=== PATIENT | male | born 1950 | race Caucasian/White ===

== ENCOUNTER 2021-08-12 20:02 | Emergency (ER) | payer MEDICARE, OTHER ==
[2021-08-12 22:27] LABS: HEMOGLOBIN 13.1 gm/dl (14.0-17.5); RED BLOOD COUNT 4.18 M/UL (4.20-5.50); WHITE BLOOD COUNT 15.9 K/UL (4.5-11.0)
[2021-08-12 23:01] LABS: BUN/CREATININE RATIO 29 (0-10)
== END 2021-08-13 04:47 | disposition home or self-care (01) ==
LOC: ER1 20:02
PROVIDERS: Family Medicine
DX: K80.50 Calculus of bile duct without cholangitis or cholecystitis without obstruction (principal); R79.89 Other specified abnormal findings of blood chemistry; I10 Essential (primary) hypertension; Z20.822 Contact with and (suspected) exposure to COVID-19; Z79.01 Long term (current) use of anticoagulants; Z88.0 Allergy status to penicillin; Z88.1 Allergy status to other antibiotic agents
CPT/HCPCS: 0240U; 71045; 80053; 80074; 82550; 82553; 83605; 83690; 83735; 84484; 85025; 85610; 87040; 93005; 96361; 96365; 96375; 99284; J1335; J2405; Q9967